=== PATIENT | female | born 1975 | race Caucasian/White ===

== ENCOUNTER 2020-02-12 09:18 | Outpatient (CLI) | payer BC, SELFPAY ==
--- NOTE | ~2020-02-12 | MM_ITS ---
EXAMINATION: MM screening leeann BI w judy HISTORY: Screening TECHNIQUE: Craniocaudal and mediolateral oblique 3-D tomosynthesis images were obtained and synthetic 2-D images were generated. CAD analysis was submitted and interpreted. COMPARISON: 01/20/2016 BREAST PARENCHYMAL COMPOSITION: There are scattered areas of fibroglandular density. FINDINGS: There is no evidence of suspicious mass, calcification, or architectural distortion to sugg est malignancy in either breast. There has been no suspicious interval change. IMPRESSION: 1. No mammographic evidence of malignancy. 2. Recommend routine screening mammography in one year. BI-RADS Category 1: Negative Reviewed, dictated and finalized at location A.
== END 2020-02-12 09:19 | disposition home or self-care (01) ==
LOC: ANHIMG 09:21
PROVIDERS: PCP Family Medicine; Visit Provider Physician Assistant
DX: Z12.31 Encounter for screening mammogram for malignant neoplasm of breast (principal)
CPT/HCPCS: 77063; 77067

== ENCOUNTER 2020-12-10 11:00 | Emergency (ER) | payer BC, SELFPAY ==
--- NOTE | ~2020-12-10 | XR_ITS ---
EXAMINATION: XR elbow RT min 3V EXAM DATE: 12/10/2020 11:14 INDICATION: Trauma yesterday fell in tub/rt elbow pain. Initial encounter. TECHNIQUE: Right elbow frontal, lateral with flexion, and oblique projections obtained and reviewed. There is no prior study for comparison. FINDINGS: Right elbow anterior humeral line intact. There are no acute fractures or dislocations markos ntified. There is no subcutaneous gas. Swelling over the olecranon process. Possible small joint ef fusion. There are no radiopaque foreign bodies. IMPRESSION: 1. Right elbow exam without acute osseous findings. 2. Posterior swelling. 3. Possible small effusion. Reviewed, dictated and finalized at location A.
[2020-12-10 11:12] VITALS: BP 120/66; PULSE 78; RESP 20; TEMP 36.6; O2SAT 100
--- NOTE | 2020-12-10 11:21 | ED.UPPEXIN ---
HPI - Extremity Injury (Upper) General Chief Complaint: Extremity Injury, Upper Stated Complaint: Fall Source: patient and RN notes reviewed Limitations: no limitations History of Present Illness HPI narrative: The patient, right-handed schoolteacher, presents with right elbow pain. Patient states she slipped yesterday while shaving her legs in the bathtub, and complains of right elbow pain that is mild, worse with motion, better at rest but with almost unlimited range of motion except for endpoints now. There was bleeding from a deep abrasion on the olecranon at the time, and she is cleansed it by going swimming in a personal, chlorinated pool. No bleeding, deformity. Other injury, prior injury Related Data Allergies Allergy/AdvReac Type Severity Reaction Status Date / Time imiquimod Allergy Unknown unk Verified 08/17/20 16:43 Review of Systems Review of Systems: Narrative: General/Constitutional: No weight loss,fever Eyes: N0: Redness,discharge Ears/Nose/Throat: No: Epistaxis,ear discharge Respiratory: Denies: Hemoptysis Gastrointestinal: No Vomiting, Bleeding-rectal Skin: No Lumps, eruption Neurologic: No Focal Weakness,Sz Hematologic: Denies: Petechiae/Purpura Psychiatric: No: Suicida ideationl All Other Systems: Reviewed and Negative [facility] Past Medical History Medical History (Updated 12/10/20 @ 11:37 by Fransisco Lowery MD) Anxiety Depression Surgical History Surgical History Previous section Family History Family History Grandparent Diabetes mellitus Family history of coronary artery disease Family history of malignant neoplasm of breast in first degree relative Social History Social History Smoking status: Never smoker Second hand tobacco smoke exposure: No Alcohol intake: never Gender identity (if verbalized by the patient): Female Comments At time of signature, agree with nursing past medical, surgical, social and family history. There is no relevant family history pertinent to the presenting complaint Exam Narrative: Exam Narrative: General Appearance: Well appearing, conjunctiva clear Mouth/Throat: Normal appearing, Normal lips Neck: Supple Respiratory: Airway patent, No respiratory distress MS-elbow: Normal strength (mostly intact, almost un- limited flexion/extension by pain), Tenderness (olecranon, with mild decreased ROM), Scant swelling (olecranon), Other (no anterior drawer, no collateral laxity,s) Skin: Warm, Dry, Normal color, small healing 1 cm, transverse deep abrasion of olecranon Neurological: A&O x3, Normal affect Course Course Emergency Course: Films visualized, interpreted by radiologist, agree, ABnormal see report Vital Signs Vital signs: Vital Signs Temperature 97.8 F 12/10/20 11:12 Pulse Rate 78 12/10/20 11:12 Respiratory Rate 20 12/10/20 11:12 Blood Pressure 120/66 12/10/20 11:12 Pulse Oximetry 100 12/10/20 11:12 Temperature 97.8 F 12/10/20 11:12 Pulse Rate 78 12/10/20 11:12 Respiratory Rate 20 12/10/20 11:12 Blood Pressure 120/66 12/10/20 11:12 Pulse Oximetry 100 12/10/20 11:12 Discharge Plan Discharge Clinical Impression: Effusion, left elbow Patient Disposition: Home, Self-Care Condition: Stable Instructions: Elbow Fracture (ED), Elbow Bursitis (ED) Prescriptions: New cephalexin 500 mg capsule 1,000 mg PO Q12H 5 Days Qty: 20 RF: 0 tramadol 50 mg tablet 50 mg PO BID PRN (Reason: pain) Qty: 15 RF: 1 mupirocin 2 % ointment 1 applic topical TID Qty: 30 RF: 0 No Action fluoxetine 20 mg capsule 20 mg PO DAILY Qty: 90 RF: 3 Follow-up/Referrals: Gabriela Hyman MD [Primary Care Provider] -
== END 2020-12-10 11:38 | disposition home or self-care (01) ==
PROVIDERS: Emergency Provider Emergency Medicine; PCP Family Medicine
DX: M25.422 Effusion, left elbow (principal)
CPT/HCPCS: 73080; 99213; G0463

== ENCOUNTER 2021-02-14 17:38 | Outpatient (CLI) | payer BC, SELFPAY ==
--- NOTE | ~2021-02-14 | MM_ITS ---
EXAMINATION: MM screening leeann BI w judy HISTORY: Screening TECHNIQUE: Craniocaudal and mediolateral oblique 3-D tomosynthesis images were obtained and synthetic 2-D images were generated. CAD analysis was submitted and interpreted. COMPARISON: Comparison to multiple prior studies sequentially, with oldest reviewed study dated 01/19. BREAST PARENCHYMAL COMPOSITION: There are scattered areas of fibroglandular density. FINDINGS: There is no evidence of suspicious mass, calcification, or architectural distortion to sugg est malignancy in either breast. There has been no suspicious interval change. IMPRESSION: 1. No mammographic evidence of malignancy. 2. Recommend routine screening mammography in one year. BI-RADS Category 1: Negative Reviewed, dictated and finalized at location A.
== END 2021-02-14 17:39 | disposition home or self-care (01) ==
LOC: ANHIMG 17:40
PROVIDERS: PCP Family Medicine; Visit Provider Family Medicine
DX: Z12.31 Encounter for screening mammogram for malignant neoplasm of breast (principal)
CPT/HCPCS: 77063; 77067

== ENCOUNTER → 2021-09-11 14:57 | Outpatient (CLI) | payer BC, SELFPAY ==
--- NOTE | ~2021-09-11 | US_ITS ---
EXAMINATION: US pelvic complete w TV DATE: 09/11/2021 15:38 INDICATION: Irregular periods TECHNIQUE: Multiple transabdominal and endovaginal sonographic images of the pelvis were obtained. COMPARISON: None. FINDINGS: The uterus measures 8.2 x 3.9 x 4.2 cm. The endometrial complex measures 5 mm. The left ova ry is not visualized however no left adnexal abnormality is seen. The right ovary measures 1.8 x 1.4 x 1.6 cm. There is normal vascular flow in the right ovary. There is no free fluid in the pelvis. IMPRESSION: 1. No sonographic correlate for the patient's symptoms. Reviewed, dictated and finalized at location B. PATIAL SYSTEMS INTEGRATOR
== END ==
DX: N39.3 Stress incontinence (female) (male) (principal)
CPT/HCPCS: 76830; 76856

== ENCOUNTER 2021-10-01 13:39 | Emergency (ER) | payer BC, SELFPAY ==
[2021-10-01 13:45] VITALS: BP 119/66; PULSE 70; RESP 18; TEMP 36.4; O2SAT 99
--- NOTE | 2021-10-01 13:57 | ED.URI ---
HPI - URI/Sore Throat General Chief Complaint: Upper Respiratory Infection Stated Complaint: Sinus,Rt Ear Pain Time Seen by Provider: 10/01/21 13:57 Source: patient Mode of arrival: ambulatory Limitations: no limitations History of Present Illness HPI Narrative: 45-year-old female presents with complaint of nasal congestion, sinus pressure, postnasal drainage for 10 to 14 days. Takes Zyrtec daily. Has been taking some DayQuil cold and sinus with no relief of symptoms. Reports yesterday she began to have pressure to right ear. All systems reviewed and negative except as noted above. Related Data Home Medications Medication Instructions Recorded Confirmed cetirizine [Zyrtec] 10 mg PO DAILY 10/01/21 10/01/21 Allergies Allergy/AdvReac Type Severity Reaction Status Date / Time No Known Allergies Allergy Verified 10/01/21 13:57 Review of Systems Review of Systems: CONSTITUTIONAL: Denies fever, chills, or sweats. EYES: Denies visual changes, redness, or discharge. ENT: Reports rhinorrhea, congestion. Denies sore throat. Reports otalgia. CARDIOVASCULAR: Denies chest pain, palpitations, or edema. RESPIRATORY: Denies cough or dyspnea. GASTROINTESTINAL: Denies abdominal pain, nausea, vomiting, or diarrhea. GENITOURINARY: Denies dysuria or hematuria. SKIN: Denies rash or itching. MUSCULOSKELETAL: Denies back pain, joint pain, or myalgia. NEUROLOGIC: Denies headache, numbness, or weakness. PSYCHIATRIC: Denies anxiety or depression. All other systems reviewed are negative, except as documented in HPI. [facility] Past Medical History Medical History (Updated 10/01/21 @ 14:02 by Nava Castillo NP) Anxiety Depression Surgical History Surgical History Previous section Family History Family History Grandparent Diabetes mellitus Family history of coronary artery disease Family history of malignant neoplasm of breast in first degree relative Social History Social History Smoking status: Never smoker Second hand tobacco smoke exposure: No Alcohol intake: never Gender identity (if verbalized by the patient): Female Comments At time of signature, agree with nursing past medical, surgical, social and family history. There is no relevant family history pertinent to the presenting complaint. Exam Narrative: GENERAL: This is a well-nourished, well-developed patient, in no apparent distress. HEAD: normocephalic, atraumatic. EYES: PERRL. Sclera clear/white. Vision is grossly intact. EARS: External ears normal, auditory canals clear and without drainage, fluid to bilateral TMs with dull light reflex. No perforation. NOSE: External nose normal with clear nasal drainage. Maxillary sinus tenderness on palpation. THROAT: Mucous membranes moist, mild erythema to posterior pharynx with clear postnasal drainage. NECK: Neck supple, non-tender without lymphadenopathy, masses or thyromegaly. CARDIOVASCULAR: Regular rate and rhythm without murmurs, gallops, or rubs. RESPIRATORY: Clear to auscultation. Breath sounds equal bilaterally. No wheezes, rales, or rhonchi. SKIN: warm, Dry, intact with no suspicious lesions or rash, good texture and turgor. NEURO: awake, alert, and oriented to person, place and time. There were no obvious focal neurologic abnormalities. EXTREMITIES: Normal range of motion to all extremities. Course Course Level of Care: Express Care Visit Vital Signs Vital signs: Vital Signs Temperature 36.4 C 10/01/21 13:45 Pulse Rate 70 10/01/21 13:45 Respiratory Rate 18 10/01/21 13:45 Blood Pressure 119/66 10/01/21 13:45 Pulse Oximetry 99 10/01/21 13:45 Temperature 36.4 C 10/01/21 13:45 Pulse Rate 70 10/01/21 13:45 Respiratory Rate 18 10/01/21 13:45 Blood Pressure 119/66 10/01/21 13:45
== END 2021-10-01 14:04 | disposition home or self-care (01) ==
PROVIDERS: Emergency Provider Nurse Practitioner Family; PCP Family Medicine
DX: J01.90 Acute sinusitis, unspecified (principal); F41.9 Anxiety disorder, unspecified; F32.A Depression, unspecified
CPT/HCPCS: 99213; G0463

== ENCOUNTER → 2022-12-05 15:49 | Outpatient (CLI) | payer BC, SELFPAY ==
--- NOTE | ~2022-12-05 | US_ITS ---
EXAMINATION: US abdomen limited DATE: 12/05/2022 16:19 INDICATION: R10.11 - Right upper quadrant pain TECHNIQUE: Multiple grayscale and Doppler ultrasound images of limited portions of the abdomen were o btained. COMPARISON: None available. FINDINGS: The visualized portions of the pancreas are normal. The liver is mildly enlarged with incre ased echogenicity and normal echotexture. No surface nodularity. Normal hepatopetal flow in the main portal vein. The gallbladder is normal with no abnormal wall thickening, pericholecystic fluid or sto glo. The common bile duct measures 3 mm. There was no sonographic Glez sign. IMPRESSION: Hepatomegaly. Echogenic liver, most commonly due to steatosis but also can be seen with hepatitis and fibrosis. Reviewed, dictated and finalized at location K. IMPRESSION: Hepatomegaly. Echogenic liver, most commonly due to steatosis but also can be s een with hepatitis and fibrosis.
== END ==
PROVIDERS: PCP Family Medicine; Visit Provider Family Medicine
DX: R10.11 Right upper quadrant pain (principal)
CPT/HCPCS: 76705

== ENCOUNTER → 2023-04-23 16:01 | Outpatient (CLI) | payer BC, SELFPAY ==
--- NOTE | ~2023-04-23 | MM_ITS ---
EXAMINATION: MM screening leeann BI w judy HISTORY: Screening TECHNIQUE: Craniocaudal and mediolateral oblique 3-D tomosynthesis images were obtained and synthetic 2-D images were generated. CAD analysis was submitted and interpreted. COMPARISON: Comparison to multiple prior studies sequentially, with oldest reviewed study dated 01/19. BREAST PARENCHYMAL COMPOSITION: There are scattered areas of fibroglandular density. FINDINGS: There is no evidence of suspicious mass, calcification, or architectural distortion to sugg est malignancy in either breast. There has been no suspicious interval change. IMPRESSION: 1. No mammographic evidence of malignancy. 2. Recommend routine screening mammography in one year. BI-RADS Category 1: Negative Reviewed, dictated and finalized at location A.
== END ==
PROVIDERS: PCP Registered Nurse School; Visit Provider Registered Nurse School
DX: Z12.31 Encounter for screening mammogram for malignant neoplasm of breast (principal)
CPT/HCPCS: 77063; 77067

== ENCOUNTER 2024-09-23 15:10 | Emergency (ER) | payer BC, SELFPAY ==
--- NOTE | ~2024-09-23 | XR_ITS ---
XR ankle RT min 3V Ordering provider: Nava Castillo NP History: . RT lat ankle pain no injury off/on 5x days . Comparison: None. FINDINGS: BONES: No acute fracture or dislocation. JOINT SPACES: Normal. SOFT TISSUES: Normal. Calcaneus. IMPRESSION: No acute osseous abnormality of the right ankle. Reviewed, dictated and finalized at location A.
[2024-09-23 15:19] VITALS: BP 135/68; PULSE 74; RESP 16; TEMP 36.2; O2SAT 99
--- NOTE | 2024-09-23 15:22 | ED.LOWEXIN ---
HPI - Extremity Injury (Lower) General Chief Complaint: Extremity Injury, Lower Stated Complaint: pain in ankle Time Seen by Provider: 09/23/24 15:22 Source: patient Mode of arrival: ambulatory Limitations: no limitations History of Present Illness HPI Narrative: 48 yo F presents with c/o pain to R ankle, lateral aspect, for approx. 3 days. Has pain one day, resolved and then came back. thinks she has gout. no hx of gout. no warmth or redness. denies injury. pain worse when ambulatory. minimal pain rest. All systems reviewed and negative except as noted above. Related Data Home Medications ?Medication ?Instructions ?Recorded ?Confirmed ?Last Taken ?Type cetirizine 10 mg tablet (Zyrtec) 10 mg PO DAILY 10/01/21 08/05/24 Unknown History Allergies Allergy/AdvReac Type Severity Reaction Status Date / Time No Known Allergies Allergy Verified 09/23/24 15:19 Review of Systems Review of Systems: CONSTITUTIONAL: Denies fever, chills, or sweats. EYES: Denies visual changes, redness, or discharge. ENT: Denies rhinorrhea, congestion, sore throat, or otalgia. CARDIOVASCULAR: Denies chest pain, palpitations, or edema. RESPIRATORY: Denies cough or dyspnea. GASTROINTESTINAL: Denies abdominal pain, nausea, vomiting, or diarrhea. GENITOURINARY: Denies dysuria or hematuria. SKIN: Denies rash or itching. MUSCULOSKELETAL: Denies back pain, joint pain, or myalgia. Reports right ankle pain. NEUROLOGIC: Denies headache, numbness, or weakness. PSYCHIATRIC: Denies anxiety or depression. All other systems reviewed are negative, except as documented in HPI. [facility] Past Medical History Medical History (Updated 09/23/24 @ 16:02 by Nava Castillo NP) Anxiety Depression Surgical History Surgical History Previous section Family History Family History Grandparent Diabetes mellitus Family history of coronary artery disease Family history of malignant neoplasm of breast in first degree relative Social History Social History Smoking status: Never smoker Second hand tobacco smoke exposure: No Alcohol intake: never Substance use: never Substance use type: does not use Lack of Transportation: No Lack of Food: Never True Current Housing: I Have Housing Concerned About Future Housing: No Difficulty Paying Gas/Electric Bills: No Difficulty Paying for Meds: No Currently Unemployed: No Education: Master's Degree or Higher Difficulty w/ Childcare or Family Care: No Living arrangements: with family Occupation/Education: occupation Gender identity (if verbalized by the patient): Female Comments At time of signature, agree with nursing past medical, surgical, social and family history. There is no relevant family history pertinent to the presenting complaint. Exam Narrative: GENERAL: This is a well-nourished, well-developed patient, in no apparent distress. HEAD: normocephalic, atraumatic. EYES: PERRL. Sclera clear/white. Vision is grossly intact. EARS: External ears normal NOSE: External nose normal NECK: Neck supple, non-tender without lymphadenopathy, masses or thyromegaly. CARDIOVASCULAR: Regular rate and rhythm without murmurs, gallops, or rubs. RESPIRATORY: Clear to auscultation. Breath sounds equal bilaterally. No wheezes, rales, or rhonchi. SKIN: warm, Dry, intact with no suspicious lesions or rash, good texture and turgor. NEURO: awake, alert, and oriented to person, place and time. There were no obvious focal neurologic abnormalities. EXTREMITIES: No redness, swelling or warmth to right ankle. Some tenderness on palpation of right posterior lateral aspect (PTFL) Course Course Level of Care: Express Care Visit Vital Signs Vital signs: Vital Signs Temperature 36.2 C L 09/23/24 15:19 Pulse Rate 74 09/23/24 15:19 Respiratory Rate 16 09/23/24 15:19 Blood Pressure 135/68 09/23/24 15:19 Pulse Oximetry 99 09/23/24 15:19 Oxygen Delivery Room Air 09/23/24 15:19 Temperature 36.2 C L 09/23/24 15:19 Pulse Rate 74 09/23/24 15:19 Respiratory Rate 16 09/23/24 15:19 Blood Pressure 135/68 09/23/24 15:19 Pulse Oximetry 99 09/23/24 15:19 Oxygen Delivery Room Air 09/23/24 15:19 Reviewed MDM - Extremity Injury (Lower) MDM Narrative Medical decision making narrative: x-ray of right ankle is normal. Patient's symptoms most likely not related to gout due to degree of pain is mild, no warmth, redness or swelling noted. Recommend patient take ibuprofen, will give Medrol Dosepak. Recommend follow-up with primary care physician if pain not improving. Please be advised this is a medical document. It is intended for ioyy-wh-fler communication. It is written in medical language and may contain unfamiliar abbreviations or verbiage. Medical documents are intended to carry relevant information, facts as evident, and the clinical opinion of the practitioner at the time of the encounter. This report may have been done utilizing a voice recognition system. Attempts have been made to correct errors. However, there may be uncorrected grammatical, spelling, and recognition errors present. The file time of this note does not necessarily represent the time of service. Discharge Plan Discharge Clinical Impression: Acute right ankle pain Patient Disposition: Home, Self-Care Condition: Stable Instructions: Arthralgia (ED) Additional Instructions: the x-ray of your right ankle was Normal. Take ibuprofen every 6-8 hours as needed for pain. Take steroids as prescribed. Elevate when at rest. Avoid activities that increase pain. Follow-up with your doctor pain is not improving. Patient Language: Pashto Prescriptions: New methylprednisolone [Medrol (Scott)] 4 mg tablets,dose pack See Rx Instructions PO .COMPLEX Qty: 21 0RF Rx Instructions: orally per package directions No Action cetirizine [Zyrtec] 10 mg Tablet 10 mg PO DAILY fluoxetine 20 mg capsule 20 mg PO DAILY Qty: 90 3RF cholecalciferol (vitamin D3) 25 mcg (1,000 unit) capsule 25 mcg PO DAILY Qty: 100 0RF Follow-up/Referrals: Gabriela Hyman MD [Primary Care Provider] - Time of Disposition: 16:03
--- OUTSIDE RECORDS SUMMARY | 2024-09-23 16:43 | XMS_ITS | Clinical Summary ---
Author Organization [facility] Address [facility] [address] [place] [address] Care Team Providers Care Sailor Name Role Phone Unavailable Primary Care Provider Unavailabl e Immunizations Name Administration Dates Next Due PFIZER COVID-19 (ORIGINAL FO RMULATION, PURPLE CAP) mRNA, LNP-S, PF, 30 MCG/0.3 ML DOSE 09/17/2020,08/27/2020 Social History Tobacco Use Types Packs/Day Years Used Date Smoking Tobacco: Never Assessed Comments Unknown Sex and Gender Information Value Date Recorded Sex Assigned at Not on file Legal Sex Female 5:22 PM [employer] Gender Identity Not on file Sexual Orientation Not on file Plan of Treatment Health Maintenance Due Date Last Done Comments Cervical Cancer Screening Pa p Smear (Age 30 to 64) Every 3 Years 1975 Colorectal Cancer Screening Colonoscopy (10 Years) 1975 Annual Physical 11/19/1978 Hepatitis C 11/19/1993 DTaP, Tdap and Td Vaccines ( 1 - Tdap) 11/19/1994 Hepatitis B Vaccines (1 of 3 - 19+ 3-dose series) 11/19/1994 Cervical Cancer Screening Pa p with HPV Testing (Age 30 to 64) Every 5 Years 11/19/2005 Cervical Cancer Screening wi th HPV 11/19/2005 Mammogram Screening 2015 COVID-19 Vaccine (2023-2 5 season) 2024 09/17/2020, 08/27/2020 Influenza Adult (#1) 2024 Meningococcal B Vaccine Aged Out No l onger eligible based on patient's age to complete this topic Meningococcal Vaccine Aged Out No ronaldo travis eligible based on patient's age to complete this topic Pneumococcal Vaccine: Pediatrics (0 to 5 Years) and At-Risk Patients (6 to 64 Years) Aged Out No longer eligible b ased on patient's age to complete this topic RSV Immunizations Under 20 Months Aged Out No longer eligible b ased on patient's age to complete this topic
== END 2024-09-23 16:06 | disposition home or self-care (01) ==
PROVIDERS: Emergency Provider Nurse Practitioner Family; PCP Family Medicine
DX: M25.571 Pain in right ankle and joints of right foot (principal)
CPT/HCPCS: 73610; 99213; G0463

== ENCOUNTER 2024-09-30 15:42 | Outpatient (CLI) | payer BC, SELFPAY ==
--- NOTE | ~2024-09-30 | MM_ITS ---
EXAMINATION: MM screening [facility] BI w judy HISTORY: Screening TECHNIQUE: Craniocaudal and mediolateral oblique 3-D tomosynthesis images were obtained and synthetic 2-D images were generated. CAD analysis was submitted and interpreted. COMPARISON: 04/23/2023 and dating back to 01/20/2016 BREAST PARENCHYMAL COMPOSITION: There are scattered areas of fibroglandular density. FINDINGS: Redemonstration of a (likely) intramammary lymph node within the upper outer right breast, stable dating back to 2015. Stable parenchymal pattern without suspicious microcalcifications or architectural distortion. IMPRESSION: 1. No mammographic evidence of malignancy. 2. Recommend routine screening mammography in one year. BI-RADS Category 2: Benign finding(s). Reviewed, dictated and finalized at location A.
== END 2024-09-30 15:43 | disposition home or self-care (01) ==
LOC: MICIMG 15:44
PROVIDERS: PCP Obstetrics & Gynecology; Visit Provider Registered Nurse School
DX: Z12.31 Encounter for screening mammogram for malignant neoplasm of breast (principal)
CPT/HCPCS: 77063; 77067

== ENCOUNTER 2024-10-08 01:51 | Day surgery (SDC) | payer BC, SELFPAY ==
[2024-09-30 11:18] VITALS: BMI 32.9
[2024-10-08 11:52] VITALS: BP 117/66; PULSE 68; RESP 16; TEMP 35.8; O2SAT 100; BMI 35.7
[2024-10-08 12:01] LABS: BEDSIDEPREGUCG Negative (Negative)
[2024-10-08] MEDS: LACTATED RINGERS 1,000 ML 150 ML IV CONT (12:01)
--- NOTE | 2024-10-08 12:35 | P.PNAN_ITS ---
Anes - Initial Pre Proc Eval Procedure: Operation Date: 10/08/24 13:00 Proposed Procedures p Screening Colonoscopy - Dionisio Castro MD Date/Time: 10/08/24 12:35 Surgeon: Dionisio Castro MD Pre Op Diagnosis: Screening Patient Data Age: 48 Gender: F Height: 1.63 m Weight: 94.4 kg Last Vital Signs Temp 96.4 F L 10/08/24 11:52 Pulse 68 10/08/24 11:52 Resp 16 10/08/24 11:52 BP 117/66 10/08/24 11:52 Pulse Ox 100 10/08/24 11:52 O2 Del Method Room Air 10/08/24 11:52 Allergies Allergy/AdvReac Type Severity Reaction Status Date / Time No Known Allergies Allergy Verified 10/08/24 11:49 Home Medications ?Medication ?Instructions ?Recorded ?Confirmed ?Type cetirizine 10 mg tablet (Zyrtec) 10 mg PO DAILY 10/01/21 10/08/24 History fluoxetine 20 mg capsule 20 mg PO DAILY #90 caps 08/05/24 10/08/24 Rx cholecalciferol (vitamin D3) 25 25 mcg PO DAILY #100 caps 08/13/24 10/08/24 Rx mcg (1,000 unit) capsule Laboratory Tests 10/08/24 11:52 POC Urine HCG, Qual Negative (Negative) Patient hx anesthesia problems: none Family hx anesthesia problems: none Results Review: All pre-operative results and documents have been reviewed as part of the pre- operative evaluation. [facility] Past Medical History Medical History (Updated 09/24/24 @ 00:01 by Bola Diehl) Anxiety Depression Surgical History Surgical History Previous section Family History Family History Grandparent Diabetes mellitus Family history of coronary artery disease Family history of malignant neoplasm of breast in first degree relative Social History Social History Smoking status: Never smoker Second hand tobacco smoke exposure: No Alcohol intake: never Substance use: never Substance use type: does not use Lack of Transportation: No Lack of Food: Never True Current Housing: I Have Housing Concerned About Future Housing: No Difficulty Paying Gas/Electric Bills: No Difficulty Paying for Meds: No Currently Unemployed: No Education: Master's Degree or Higher Difficulty w/ Childcare or Family Care: No Living arrangements: with family Occupation/Education: occupation Gender identity (if verbalized by the patient): Female Spiritual care concerns: No Anes - Eval Final PreProcedure Day of Procedure 10/08/24 12:35 Patient weight: obese Heart: regular rate and rhythm Lungs: clear to auscultation Airway: Mallampati scale class II Neurological: alert and oriented Last oral intake: >/= 8 hours ASA classification: II Emergent: no Anesthetic plan: proceed Anesthesia type and monitoring: general GIVS and standard monitoring Results Review: All pre-operative results and documents have been reviewed as part of the pre- operative evaluation. Informed Consent: The patient's anesthetic plan and its attendant risks and benefits were discussed with the patient/family/POA. Questions were solicited and answers provided to the satisfaction of the patient/family/POA.
--- NOTE | 2024-10-08 13:13 | PM.HPGS ---
History of Present Illness History of Present Illness Consent: Risks, benefits, and alternatives have been discussed and questions answered. Patient agrees to proceed with procedure. Chief complaint: Screening Narrative: Doris Coy is a 48 year old female here for first screening colonoscopy Review of Systems Review of Systems: All systems reviewed & are unremarkable except as noted in HPI and below PMFSH Past Medical History Medical History (Updated 10/08/24 @ 13:13 by Dionisio Castro MD) Colon cancer screening Anxiety Depression Surgical History Surgical History Previous section Family History Family History Grandparent Diabetes mellitus Family history of coronary artery disease Family history of malignant neoplasm of breast in first degree relative Social History Social History Smoking status: Never smoker Second hand tobacco smoke exposure: No Alcohol intake: never Substance use: never Substance use type: does not use Lack of Transportation: No Lack of Food: Never True Current Housing: I Have Housing Concerned About Future Housing: No Difficulty Paying Gas/Electric Bills: No Difficulty Paying for Meds: No Currently Unemployed: No Education: Master's Degree or Higher Difficulty w/ Childcare or Family Care: No Living arrangements: with family Occupation/Education: occupation Gender identity (if verbalized by the patient): Female Spiritual care concerns: No Meds Home Medications and Allergies Home Medications ?Medication ?Instructions ?Recorded ?Confirmed ?Type cetirizine 10 mg tablet (Zyrtec) 10 mg PO DAILY 10/01/21 10/08/24 History fluoxetine 20 mg capsule 20 mg PO DAILY #90 caps 08/05/24 10/08/24 Rx cholecalciferol (vitamin D3) 25 25 mcg PO DAILY #100 caps 08/13/24 10/08/24 Rx mcg (1,000 unit) capsule Allergies Allergy/AdvReac Type Severity Reaction Status Date / Time No Known Allergies Allergy Verified 10/08/24 11:49 Vital Signs Vital Signs - 24 hr 10/08/24 11:52 Temperature 96.4 F L Pulse Rate 68 Respiratory Rate 16 Blood Pressure 117/66 Pulse Oximetry 100 Oxygen Delivery Room Air Exam Const: General: comfortable and no acute distress HENMT: Face/Nose/Sinus: Normal nares present Eyes: General: appearance normal, both eyes and all related structures Neck: Neck: no JVD Resp: Auscultation: clear to auscultation bilaterally Cardio: Rate: regular rate Rhythm: regular rhythm GI: Inspection: non-distended GI Palp: Yes Soft to palpation Skin: General skin exam: normal color Neuro: General: gait normal Speech: normal speech Extrem: General: normal to inspection Psych: Mental Status: mental status grossly normal Assessment and Plan Assessment and plan (1) Colon cancer screening: Code(s): Z12.11 - Encounter for screening for malignant neoplasm of colon Status: Acute Assessment and Plan: colonoscopy
[2024-10-08 13:33] VITALS: BP 122/76; PULSE 75; RESP 20; O2SAT 100
[2024-10-08 13:43] VITALS: BP 120/71; PULSE 70; RESP 19; O2SAT 100
[2024-10-08 13:53] VITALS: BP 125/75; PULSE 70; RESP 19; O2SAT 100
== END 2024-10-08 14:00 | disposition home or self-care (01) ==
PROVIDERS: Anesthesiology; PCP Family Medicine; Referring Provider Student in an Organized Health Care Education/Training Program; Visit Provider Internal Medicine Gastroenterology
PROC: 0DJD8ZZ Inspection of Lower Intestinal Tract, Via Natural or Artificial Opening Endoscopic (ICD-10-PCS; CPT 45378; principal; 2024-10-08 13:00)
DX: Z12.11 Encounter for screening for malignant neoplasm of colon (principal); D12.4 Benign neoplasm of descending colon; K64.8 Other hemorrhoids; F41.8 Other specified anxiety disorders
CPT/HCPCS: 45385; 88305; J2003; J2704; J7120